=== PATIENT | female | born 1965 | race Caucasian/White ===

== ENCOUNTER → 2016-07-13 | Outpatient (CLI) | payer OTHER ==
--- NOTE | 2016-07-13 09:19 | MA ---
Screening Digital Mammogram Clinical Indications: Routine screening. Technique: Standard cephalocaudal and mediolateral oblique projections are obtained. This examinat ion is processed by the [employer] computer aided detection system. Comparison: 07/15, 06/13, 06/12, 12/09 Breast density: B; There are scattered fibroglandular densities. Findings: CAD was reviewed. No suspicious findings are identified. Impression: Negative mammogram. . BI-RADS 1. Recommendation: Routine screening is recommended in one year. [facility] will send a result letter to the patient. Negative mammography should not preclude additional workup of a clinically suspicious finding. The patient's information is entered into a reminder system with a target due date for her next mamm ogram.
== END ==
LOC: FIMAGING 08:24
DX: Z12.31 Encounter for screening mammogram for malignant neoplasm of breast (principal)
CPT/HCPCS: G0202

== ENCOUNTER 2017-05-10 11:28 | Emergency (ER) | payer OTHER ==
[2017-05-10 11:47] VITALS: BP 100/75; PULSE 65; RESP 18; TEMP 97.9; O2SAT 96
--- NOTE | 2017-05-10 13:45 | EDPHY ---
H & P Smoking Status: Never smoked Time Seen by Provider: 05/10/17 13:28 HPI/ROS: CHIEF COMPLAINT: Right elbow injury HISTORY OF PRESENT ILLNESS: 51-year-old female presents to the emergency department by private vehicle with pain in her right elbow after she fell just a few hours prior to arrival. She did not hit her head or lose consciousness. Denies neck or back pain. Denies chest pain or difficulty breathing. Complains of isolated pain to her right elbow. Has pain especially with range of motion. She is right-hand dominant. ROS: Denies numbness or tingling in her fingers, pain in her right wrist, right shoulder or in her left upper extremity or lower extremities bilaterally. (Machelle Gutierrez) Past Medical/Surgical History: Previous right elbow fracture (Machelle Gutierrez) Social History: (Machelle Gutierrez) Physical Exam: Right elbow is slightly swollen. No abrasion or ecchymosis noted. No puncture wound. She has limited extension of the right elbow. She has reproducible pain especially over the radial head. No palpable crepitus or other bony abnormality. Limited supination secondary to pain. Full range of motion of her right shoulder. Nontender to palpate her right wrist. Normal sensation to light touch with normal 2 point discrimination. (Machelle Gutierrez) Constitutional: Initial Vital Signs Temperature (C) 36.6 C 05/10/17 11:43 Heart Rate 65 05/10/17 11:43 Respiratory Rate 18 05/10/17 11:43 Blood Pressure 100/75 05/10/17 11:43 O2 Sat (%) 96 05/10/17 11:43 O2 Delivery Mode Room Air Allergies/Adverse Reactions: No Known Allergies Allergy (Verified 05/10/17 11:43) Home Medications: Medication Instructions Recorded Citalopram 05/10/17 MDM/Departure - MDM Imaging: I viewed and interpreted images myself - MDM Procedures: Patient was placed in long-arm Ortho Glass splint and examined post application in good placement with normal MANAGER OF [employer]ALITY. (Machelle Gutierrez) ED Course/Re-evaluation: 51-year-old female presents to the emergency department with right elbow injury. X-rays reveal anterior posterior fat pads and likely occult fracture. She was placed in a long-arm Ortho Glass splint and sling and given orthopedic referral. (Machelle Gutierrez) I did not see this patient while she was in the emergency department. However her care was discussed with the PA while the patient was in the department. I agree with treatment plan and management. I am the secondary supervising physician (Dawit Colindres) - Depart Disposition: Home, Routine, Self-Care Clinical Impression: Occult fracture of right elbow Qualifiers: Encounter type: initial encounter Fracture type: closed Qualified Code(s): S42.401A - Unspecified fracture of lower end of right humerus, initial encounter for closed fracture Condition: Good Instructions: Elbow Fracture (ED) Additional Instructions: Keep splint and sling on until follow with orthopedist later this week or early the following week. Ibuprofen 600mg every 8 hours for pain as directed. Referrals: Manuel Mcdonald MD [Medical Doctor] - 5-7 days, call for appt. (Orthopedic surgeon on-call)
== END 2017-05-10 14:20 | disposition home or self-care (01) ==
DX: S42.401A Unspecified fracture of lower end of right humerus, initial encounter for closed fracture (principal); W18.39XA Other fall on same level, initial encounter
CPT/HCPCS: A4565

== ENCOUNTER → 2017-07-13 | Outpatient (CLI) | payer OTHER | LOC: FIMAGING 08:05 | PROVIDERS: ATTEND Internal Medicine | DX: Z12.31 Encounter for screening mammogram for malignant neoplasm of breast (principal) ==

== ENCOUNTER 2018-06-12 05:57 | Day surgery (SDC) | payer OTHER ==
[2018-06-12] MEDS ORDERED: LR 1,000 ML IV ONE (06:23)
--- NOTE | 2018-06-12 07:10 | PDANEPAE ---
ANE History of Present Illness CA screening colonoscopy ANE Past Medical History - Cardiovascular History Hx Hypertension: No Hx Arrhythmias: No Hx Chest Pain: No Hx Coronary Artery / Peripheral Vascular Disease: No Hx CHF / Valvular Disease: No Hx Palpitations: No - Pulmonary History Hx COPD: No Hx Asthma/Reactive Airway Disease: No Hx Recent Upper Respiratory Infection: No Hx Oxygen in Use at Home: No Hx Sleep Apnea: No Sleep Apnea Screening Result - Last Documented: Negative - Neurologic History Hx Cerebrovascular Accident: No Hx Seizures: No Hx Dementia: No - Endocrine History Hx Diabetes: No - Renal History Hx Renal Disorders: No - Liver History Hx Hepatic Disorders: No - Neurological & Psychiatric Hx Hx Neurological and Psychiatric Disorders: No - Cancer History Hx Cancer: No - Congenital Disorder History Hx Congenital Disorders: No - GI History Hx Gastrointestinal Disorders: No - Other Health History Other Health History: wears glasses for close up vision - Chronic Pain History Chronic Pain: No - Surgical History Prior Surgeries: colonoscopies ANE Review of Systems Review of Systems: - Exercise capacity METS (RN): 5 METS ANE Patient History - Allergies Allergies/Adverse Reactions: No Known Allergies Allergy (Verified 06/06/18 10:10) - Home Medications Home Medications: Multivitamin 06/06/18 [Last Taken 06/07/18] Vitamin B Complex 06/06/18 [Last Taken 06/07/18] Vitamin D3 06/06/18 [Last Taken 06/07/18] - NPO status NPO Since - Liquids (Date): 06/11/18 NPO Since - Liquids (Time): 21:00 NPO Since - Solids (Date): 06/11/18 NPO Since - Solids (Time): 07:30 - Smoking Hx Smoking Status: Never smoked - Family Anes Hx Family Hx Anesthesia Complications: none ANE Labs/Vital Signs - Vital Signs Blood Pressure: 115/84 Heart Rate: 72 Respiratory Rate: 16 O2 Sat (%): 93 Height: 172.72 cm Weight: 79.379 kg ANE Physical Exam - Airway Neck exam: FROM Mallampati Score: Class 1 Mouth exam: normal dental/mouth exam - Pulmonary Pulmonary: no respiratory distress, no rales or rhonchi - Cardiovascular Cardiovascular: regular rate and rhythym, no murmur, rub, or gallop - ASA Status ASA Status: II ANE Anesthesia Plan Anesthesia Plan: GA with mask Total IV Anesthesia: Yes
--- NOTE | 2018-06-12 07:29 | PDGENHP ---
History & Physical Chief Complaint: colon polyp follow-up History of Present Illness: 52yr female - prior adenomatous colon polyp - for repeat surveillance Pertinent Past, Social, Family History: No PMHx or PSurg Hx Relevant Physical Exam: Abd soft, nontender. Neuro alert and appropriate Cardiorespiratory Assessment: Heart reg. Lungs clear
[2018-06-12] MEDS ORDERED: fentaNYL 100 MCG/2 ML INJ ONE (07:30)
[2018-06-12] MEDS ORDERED: PROPOFOL/EMULSION 500 MG/50 ML BOTTLE IV ONE (07:30)
[2018-06-12] MEDS ORDERED: fentaNYL 100 MCG/2 ML INJ IVP PRN (07:42)
[2018-06-12] MEDS ORDERED: ONDANSETRON 4 MG/2 ML VIAL IVP PRN (07:42)
[2018-06-12] MEDS ORDERED: DEXAMETHASONE 4 MG/ML VIAL IVP PRN (07:42)
[2018-06-12] MEDS ORDERED: LR 500 ML IV PRN (07:42)
[2018-06-12] MEDS ORDERED: HYDROCODONE/APAP 5/325 TAB PO PRN (07:42)
[2018-06-12] MEDS ORDERED: NALOXONE HCL 0.4 MG/ML INJ IVP PRN (07:42)
[2018-06-12] MEDS ORDERED: MEPERIDINE 25 MG/0.5 ML AMP IVP PRN (07:42)
[2018-06-12] MEDS ORDERED: PROPOFOL 200 MG/20 ML VIAL ONE (08:14)
--- NOTE | 2018-06-12 08:32 | GIREPORT ---
[facility] - Endoscopy Department Patient Name: Susi Eugene Procedure Date: 06/12/2018 7:28 AM Patient Type: Outpatient Attending MD/ ER Physician: Pedro Frye MD Procedure: Colonoscopy Indications: High risk colon cancer surveillance: Personal history of adenoma less t german 10 mm in size Providers: Pedro Frye MD Medicines: Propofol per Anesthesia Complications: No immediate complications. Description of Procedure: After obtaining informed consent, the scope was passed under direct vis ion. Throughout the procedure, the patient's blood pressure, pulse, and oxyg en saturations were monitored continuously. The Colonoscope with irrigatio n channel was introduced through the anus and advanced to the cecum, identified by appendiceal orifice and ileocecal valve. The colonoscopy was performed with ease. The patient tolerated the procedure well. The qual ity of the bowel preparation was good. Findings: Three sessile polyps were found in the rectum, recto-sigmoid colon and distal ascending colon. The polyps were 5 mm in size. These were biopsi ed with a cold snare for histology. Estimated blood loss was minimal. Estimated Blood Loss: Estimated blood loss was minimal. Post Op Diagnosis: - Three 5 mm polyps in the rectum, at the recto-sigmoid colon and in th e distal ascending colon. Biopsied. Recommendation: - Discharge patient to home (ambulatory). - Written discharge instructions were provided to the patient. - Resume previous diet. - Repeat colonoscopy is recommended for surveillance of multiple polyps . The colonoscopy date will be determined after pathology results from today' s exam become available for review. Attending Participation: I personally performed the entire procedure. Pedro Sheridan Pedro Frye MD 06/12/2018 8:31:49 AM Number of Addenda: 0 Note Initiated On: 06/12/2018 7:28 AM Total Procedure Duration Time 0 hours 37 minutes 32 seconds [email or web address]
--- NOTE | 2018-06-12 08:33 | POSTANESTH ---
Post Anesthetic Evaluation Cardiovascular Status: Normal, Stable Respiratory Status: Normal, Stable Level of Consciousness/Mental Status: Can Participate in Eval, Mildly Sleepy, Arousable Pain Control: Adequate, Prn Tx Ordered Nausea/Vomiting Control: Adequate, Prn Tx Ordered Complications Possibly Related to Anesthesia: None Noted
[2018-06-12 09:10] VITALS: BP 105/73
== END 2018-06-12 09:26 | disposition home or self-care (01) ==
LOC: FSGY 05:57
PROVIDERS: ATTEND Surgery
DX: Z86.010 Personal history of colon polyps (principal); K62.1 Rectal polyp; D12.2 Benign neoplasm of ascending colon
CPT/HCPCS: J2704; J3010

== ENCOUNTER → 2018-08-09 | Outpatient (CLI) | payer OTHER | LOC: FIMAGING 08:44 | PROVIDERS: ATTEND Internal Medicine | DX: Z12.31 Encounter for screening mammogram for malignant neoplasm of breast (principal) ==

== ENCOUNTER → 2018-11-27 | Outpatient (CLI) | payer OTHER | LOC: CIMAGING 10:00 ==